=== PATIENT | female | born 1935 | race Caucasian/White ===

== ENCOUNTER 2024-01-17 09:17 | Emergency (ER) | payer OTHER, SELFPAY ==
[2024-01-17 09:19] VITALS: BP 163/78; PULSE 77; RESP 18; TEMP 36.8; O2SAT 99; BMI 18.8
[2024-01-17] MEDS: Ondansetron ODT 4 MG Tablet PO (10:04)
[2024-01-17] MEDS: Morphine 4 MG/ML Syringe 3 MG IV (10:05)
--- NOTE | 2024-01-17 10:22 | ED.VIS.LOWEX ---
HPI History of Present Illness Chief Complaint: Lower Extremity Injury Detail of Chief Complaint: Dislocated left patella Occured/Mechanism Comment: Patient was on the commode. She started to lean forward and there was concern by family that she would fall. They prevented her from falling. She believes her kneecap has dislocated because she is unable to extend. Onset/Context/Timing Onset: Hours Context: Sudden Onset Timing: Continuous Quality of Pain: Dull and Aching Location: Left knee Current Severity: Mild Maximum Severity: Severe Worsened by: Attempt to move Relieved by: Nothing Associated Symptoms Associated Symptoms: Positive for Loss of Funtion; Negative for Parasthesia or Weakness Narrative Narrative: Patient is an 88-year-old woman status post left total knee arthroplasty who has a remote history of patella dislocation. She is not dislocated her patella in some time. Apparently they were unable to repair the defect resulting in the patella dislocation when they did her total knee. She denies paresthesia, anesthesia or motor weakness. She is unable to extend her knee. She is in pain. She arrived via ambulance. She has an Aircast in place. Patient last ate at 0700 Tetanus Immunization: Unknown Prior similar symptoms: Yes Recent Illness/Hospitalization: No PFSH PFSH Medical History Anxiety Arthritis Depression GERD (gastroesophageal reflux disease) Hypertension Osteoporosis Ulcerative (chronic) enterocolitis Allergy/AdvReac Type Severity Reaction Status Date / Time No Known Allergies Allergy Verified 01/17/24 10:00 Surgical History H/O total knee replacement Hx of tonsillectomy Social History (Updated 01/17/24 @ 10:[address] Jed Newman MD) household members: family Smoking Status: Never smoker ROS ROS ED Constitutional Constitutional ED: Denies chills, fever(s), subjective, sweats or weight loss Musculoskeletal Musculoskeletal: Reports other Details: Left knee pain and unable to extend ; Denies arthralgias, back pain, myalgias or neck pain Integumentary Denies abscess, Abrasions or rash Neurologic Neurologic: Denies paresthesias or weakness Hematologic/Lymphatic Hematologic/Lymphatic: Denies easy bleeding or easy bruising EXAM Physical Exam Const Vital Signs: 01/17/24 09:19 01/17/24 11:18 Temperature 98.2 F Temperature Source Temporal Pulse Rate 77 82 Respiratory Rate 18 16 Blood Pressure 163/78 H 151/82 H Blood Pressure Mean 106 105 Pulse Ox 99 97 Oxygen Delivery Method Room Air Room Air Positive well nourished and well developed General Appearance ED: well developed; Negative for NAD HEENT Reports moist mucous membranes normocephalic and atraumatic Eyes PERRL Eyes Narrative: Extract muscle intact. Sclera is anicteric. Neck full ROM and supple Resp normal respiratory effort, no retractions and clear to auscultation bilaterally Cardio regular rate, regular rhythm, S1 normal heart sound, S2 normal heart sound and no murmurs Extremity Negative for normal to inspection or full ROM Extremity Narrative: Patient's left knee is swollen. There is a well-healed scar noted. Her knee is flexed 45 degrees. DP pulses palpable. Sensation is normal. Neuro oriented x3, CN's II-XII intact bilaterally, moves all extremities and no sensory deficits noted Sensorium / Orientation: alert Psych mental status grossly normal Skin no wounds Lesions: no lesions Rashes: no rashes MDM MDM MDM Narrative Medical decision making narrative: Will obtain x-ray to assess for fracture, problems with total knee replacement versus patellar dislocation. Patient was medicated with morphine for her pain. She was made NPO. History & Record Review Additional record(s) reviewed:: No prior records Lab Data Attestation: I reviewed the patient's lab results. Lab results narrative: White count slightly elevated 11.8 thousand with 83% segs no bands 8% lymphs. Patient is anemic with an H&H of 7 and 23.8. MCV is 72. This would indicate iron deficiency anemia. She will need a further workup. Labs: Laboratory Results - last 24 hr 01/17/24 10:50 WBC 11.8 H RBC 3.27 L Hgb 7.0 L Hct 23.8 L MCV 72.8 L MCH 21.4 L MCHC 29.4 L RDW Std Deviation 46.5 H RDW Coeff of Lucero 17.5 H Plt Count 336 MPV 10.5 Immature Gran % (Auto) 0.600 Neut % (Auto) 83.3 H Lymph % (Auto) 7.8 L Rabun % (Auto) 7.3 Eos % (Auto) 0.6 Baso % (Auto) 0.4 Absolute Neuts (auto) 9.9 H Absolute Lymphs (auto) 0.92 Nucleated RBC % 0 Sodium 135 L Potassium 3.8 Chloride 103 Carbon Dioxide 25.0 Anion Gap 7 BUN 24 H Creatinine 0.92 Estim Creat Clear Calc 30.50 Est GFR (MDRD) Af Amer 74 Est GFR (MDRD) Non-Af 61 BUN/Creatinine Ratio 26.1 H Glucose 101 Calcium 9.3 Total Bilirubin 0.30 AST 26 ALT 20 Alkaline Phosphatase 74 Total Protein 6.5 Albumin 3.3 Globulin 3.2 Albumin/Globulin Ratio 1.0 Radiography Chest X-Ray - ED: 2 View (Independent reviewed interpreted by me at 1038. Patient has a supracondylar periprosthetic angulated fracture. Will contact Dr. Fair and who is on-call for Ortho.) Management Discussion w/another healthcare provider: General Duty Nurse (Spoke with Dr. Brian on-call for orthopedics. He felt the patient should be transferred. If there is any difficulty in transfer he will be glad to speak to the receiving orthopedic surgeon.) Treatment and Re-Evaluation Narrative: Patient and family were told that she will need transfer. They requested [facility]. Patient did have a drop in her blood pressure with systolic of 78. She was given a 500 cc fluid bolus. Spoke with Gertrudis at the transfer line nurse at [facility], [id number] Discharge Plan Triage Chief Complaint: Lower Extremity Injury ED Provider: Jed Newman Dx/Rx/DC Orders Clinical Impression: Prerenal azotemia, Transient hypotension, Microcytic anemia, Periprosthetic supracondylar fracture of femur Primary Care Provider: Forest Fraire Referrals: Forest Fraire MD [Primary Care Provider] - Disposition Disposition: Acute Care [facility]
--- NOTE | 2024-01-17 10:25 | RAD_ITS ---
INDICATION: Injury/Pain EXAMINATION/TECHNIQUE: X-RAY - LEFT XR Knee 1 or 2 Views 2 VIEWS COMPARISON: No relevant prior comparison study available FINDINGS: SOFT TISSUES: Soft tissue swelling. Vascular calcifications. BONES/JOINTS: Displaced angulated fracture of the distal femoral shaft just proximal to the femoral component of left knee arthroplasty. No evidence of dislocation. Surgical screw overlying the proximal tibia no evidence of joint effusion. No sclerotic or destructive changes observed. RAD/Knee 1 or 2 Views IMPRESSION: Nondisplaced fracture of the distal femur. Electronically Signed: Valentino Yi MD at 11:59 EDT ,
--- NOTE | 2024-01-17 10:37 | EKG12_ITS ---
Test Reason : FALL Blood Pressure : / mmHG Vent. Rate : 069 BPM Atrial Rate : 069 BPM P-R Int : 184 ms QRS Dur : 084 ms QT Int : 384 ms P-R-T Axes : 075 086 088 degrees QTc Int : 411 ms Normal sinus rhythm Nonspecific ST abnormality Abnormal ECG Confirmed by Brendan Munguia ([id number]), web editor MARYCHUY LEOS ([id number]) on 01/20/2024 8:59:20 AM Referred By: Confirmed By:Brendan Munguia
[2024-01-17] MEDS: 0.9% Normal Saline (500mL Bag) 500 ML 1000 ML IV (10:46)
[2024-01-17 10:57] LABS: Absolute Lymphocyte Count 0.92 X10^3/uL (0.83-4.51); Absolute Neutrophil Count 9.9 X10^3/uL (2.0-7.7); Basophil# 0.05 X10^3/uL; Basophil% 0.4 % (0-1); Eosinophil# 0.07 X10^3/uL; Eosinophils% 0.6 % (0-5); Hematocrit 23.8 % (37-47); Lymphocyte # 0.92 X10^3/ul (0.83-4.51); Lymphocyte % 7.8 % (19-41); Mean Corp Hgb Conc 29.4 g/dL (32-36); Mean Corpuscular Hgb 21.4 pg (27.0-32.0); Mean Corpuscular Volume 72.8 fL (81-99); Mean Platelet Vol. 10.5 fl (6.2-12.0); Monocyte# 0.86 X10^3/uL; Monocyte% 7.3 % (0-10); NRBC Flagged by Analyzer 0 % (0-5); Neutrophil # 9.87 X10^3/uL (2.7-7.7); Neutrophil % 83.3 % (47-70); Platelet Count 336 K/mm3 (150-450); RBC Distribution Width CV 17.5 % (11.6-14.6); RBC Distribution Width SD 46.5 fl (35.1-43.9); Red Blood Count 3.27 M/mm3 (4.2-5.4); White Blood Count 11.8 K/mm3 (4.4-11.0)
--- NOTE | 2024-01-17 11:10 | RAD_ITS ---
INDICATION: Preoperative clearance EXAMINATION/TECHNIQUE: X-RAY - XR Chest 1 View COMPARISON: No relevant prior comparison study available FINDINGS: LINES/DEVICES: None. LUNGS: Focal opacity in the right lung base abutting the right hemidiaphragm could represent focal eventration of the diaphragm. Mass is less likely. No focal infiltrate otherwise is seen. No evidence of pleural effusions. MEDIASTINUM AND CARDIOVASCULAR STRUCTURES: Cardiac silhouette not enlarged. Central airways and mediastinal contour are unremarkable. BONES AND SOFT TISSUES: Fractures of the posterior right seventh and eighth ribs which could be acute or chronic. RAD/Chest 1 View (Portable) IMPRESSION: 1. Fractures of the right seventh and eighth ribs could be acute or chronic. 2. No acute infiltrate is seen. 3. Well-defined soft tissue density in the right lung base could represent focal eventration of the right hemidiaphragm. Mass is less likely. Comparison with previous examinations would be most helpful. Electronically Signed: Valentino Yi MD at 12:14 EDT ,
[2024-01-17 11:11] LABS: AST(SGOT) 26 U/L (15-37); Alanine Aminotransfer ALT/SGPT 20 U/L (13-56); Albumin, Serum 3.3 g/dL (3.2-5.0); Alkaline Phosphatase 74 U/L (45-117); Anion Gap 7 (5-15); BUN 24 mg/dL (7-18); BUN/Creat Ratio 26.1 RATIO (10-20); Calcium,Total 9.3 mg/dL (8.5-10.1); Chloride 103 mmol/L (98-107); Creatinine, Serum 0.92 mg/dL (0.55-1.02); EST Glomerular Filtration Rate 61 mL/min (>60); Est Glom Filt Rate - Afr Amer 74 mL/min (>60); Globulin 3.2 g/dL (2.2-4.2); Glucose 101 mg/dL (74-106); Potassium 3.8 mmol/L (3.5-5.1); Protein, Total 6.5 g/dL (6.4-8.2); Sodium Level 135 mmol/L (136-145)
[2024-01-17 11:18] VITALS: BP 151/82; PULSE 82; RESP 16; O2SAT 97
[2024-01-17 12:58] VITALS: BP 112/59; PULSE 78; RESP 18; O2SAT 97
[2024-01-17] MEDS: Morphine 2 MG/ML Syringe IV (13:25)
[2024-01-17 13:30] VITALS: BP 136/69; PULSE 82; RESP 20; TEMP 36.8; O2SAT 98
--- NOTE | 2024-01-17 13:43 | ED.RN ---
This RN attempted to call report, on hold for greater than 5 minutes. This Rn will attempt to call back.
== END 2024-01-17 13:45 | disposition short-term general hospital (02) ==
PROVIDERS: Emergency Provider Emergency Medicine; PCP Internal Medicine Infectious Disease; Visit Provider Emergency Medicine
DX: M97.12XA Periprosthetic fracture around internal prosthetic left knee joint, initial encounter (principal); D50.9 Iron deficiency anemia, unspecified; Z96.652 Presence of left artificial knee joint; R79.89 Other specified abnormal findings of blood chemistry; I95.89 Other hypotension; I10 Essential (primary) hypertension; X58.XXXA Exposure to other specified factors, initial encounter; Y92.89 Other specified places as the place of occurrence of the external cause
CPT/HCPCS: 71045; 73560; 80053; 85025; 93005; 96361; 96374; 96376; 99283; J7040; A4216